=== PATIENT | male | born 1955 ===

== ENCOUNTER 2024-07-14 12:58 | Emergency (ER) | payer MEDICARE ==
[2024-07-14] MEDS ORDERED: Sodium Chloride 0.9% 10 ML Syringe FLUSH PRN (13:04)
[2024-07-14] MEDS: Albuterol/Ipratropium 3.0-0.5 MG/3 ML Neb Soln NEB ONE (13:11)
[2024-07-14 13:16] LABS: BASE EXCESS ARTERIAL 3.4 mm/L; BICARBONATE,ARTERIAL 36.4 mmol/L (22.0-26.0); CARBOXYHEMOGLOBIN 1.1 % (0.0-1.6); METHEMOGLOBIN 1.1 %; O2 SATURATION ARTERIAL 86.4 % (95.0-98.0); OXYHEMOGLOBIN 84.5 %; PO2 ARTERIAL 69.4 mmHg (75.0-100.0); TOTAL HEMOGLOBIN 14.8 g/dL (13.5-18.0)
[2024-07-14] MEDS: Morphine 2 MG/ML SYRINGE IVPUSH ONE ×2 (13:16→15:40)
[2024-07-14] MEDS: methylPREDNISolone Sodium Succinate 125 MG/2 ML SDV IVPUSH ONE (13:17)
[2024-07-14 13:19] LABS: BASOPHILS ABSOLUTE AUTO 0.03 K/uL (0.00-0.10); BASOPHILS PERCENT AUTO 0.3 % (0.1-1.3); HEMATOCRIT 45.5 % (38.4-49.7); HEMOGLOBIN 14.4 g/dL (12.9-16.9); IMMATURE GRAN ABSOLUTE AUTO 0.04 K/uL (0.00-0.23); IMMATURE GRAN PERCENT AUTO 0.4 % (0.0-0.7); LYMPHOCYTES ABSOLUTE AUTO 0.42 K/uL (0.8-3.3); LYMPHOCYTES PERCENT AUTO 4.7 % (11.4-47.7); MEAN CORPUSCULAR HEMOGLOBIN 31.6 pg (31.6-35.5); MEAN CORPUSCULAR HGB CONC 31.6 g/dL (31.6-35.5); MONOCYTES ABSOLUTE AUTO 0.66 K/uL (0.20-0.90); MONOCYTES PERCENT AUTO 7.3 % (3.3-12.6); NEUTROPHILS ABSOLUTE AUTO 7.88 K/uL (1.0-7.6); NEUTROPHILS PERCENT AUTO 87.3 % (40.0-78.1); PLATELET COUNT,PLT 289 K/uL (130-375); RED BLOOD CELL COUNT 4.55 M/uL (4.14-5.76)
[2024-07-14] MEDS: Albuterol/Ipratropium 3.0-0.5 MG/3 ML Neb Soln ONE (13:34)
[2024-07-14] MEDS: Sodium Chloride 0.9% 500 ML IV ONE (13:35)
[2024-07-14] MEDS: methylPREDNISolone Sodium Succinate 125 MG/2 ML SDV ONE (13:35)
[2024-07-14] MEDS: cefTRIAXone 2 GM in Sodium Chloride 0.9% 100 ML IV SCH (13:36)
[2024-07-14 13:44] LABS: LACTIC ACID 2.2 mmol/L (0.4-2.0)
[2024-07-14 13:50] LABS: A/G RATIO 1.2 (1.2-2.2); ALANINE AMINOTRANSFERASE,ALT 33 U/L (12-78); ALBUMIN 4.5 g/dL (3.4-5.0); ALKALINE PHOSPHATASE 90 U/L (46-116); ASPARTATE AMNIOTRANSFERASE,AST 32 U/L (15-37); BILIRUBIN TOTAL 0.3 mg/dL (0.2-1.0); BLOOD UREA NITROGEN,BUN 12 mg/dL (7-18); CALCIUM 9.4 mg/dL (8.5-10.1); CARBON DIOXIDE,CO2 35 mmol/L (21-32); CHLORIDE,CL 97 mmol/L (100-108); CREATININE 0.8 mg/dL (0.8-1.3); ESTIMATED GFR 97 mL/min (>60); GLUCOSE RANDOM 161 mg/dL (74-106); POTASSIUM,K 4.4 mmol/L (3.6-5.2); PROTEIN TOTAL,TP 8.3 g/dL (6.4-8.2); SODIUM,NA 139 mmol/L (140-148)
[2024-07-14 13:53] LABS: ANION GAP 11.4 mmol/L (5.0-14.0)
[2024-07-14 13:54] LABS: TROPONIN I HIGH SENSITIVITY 386.2 pg/mL (<=60.3)
[2024-07-14 13:58] LABS: PRO B-TYPE NATRIUR PEPT,BNPPRO 592 pg/mL (5-125)
[2024-07-14 14:05] LABS: C-REACTIVE PROTEIN < 0.50 mg/dL (<0.50)
[2024-07-14 15:04] LABS: BASE EXCESS ARTERIAL 2.6 mm/L; BICARBONATE,ARTERIAL 32.8 mmol/L (22.0-26.0); CARBOXYHEMOGLOBIN 1.3 % (0.0-1.6); METHEMOGLOBIN 1.2 %; O2 SATURATION ARTERIAL 91.9 % (95.0-98.0); OXYHEMOGLOBIN 89.6 %; TOTAL HEMOGLOBIN 14.2 g/dL (13.5-18.0)
[2024-07-14 15:08] LABS: PCO2 ARTERIAL 81.8 mmHg (35.0-42.0)
[2024-07-14] MEDS ORDERED: Lidocaine 1% 20 ML MDV INJECT ONE (15:29)
[2024-07-14] MEDS: Morphine 2 MG/ML SYRINGE ONE (15:54)
[2024-07-14] MEDS: Lidocaine 1% 50 ML MDV INJECT ONE (16:22)
[2024-07-14 17:14] LABS: BASE EXCESS ARTERIAL 5.1 mm/L; BICARBONATE,ARTERIAL 33.9 mmol/L (22.0-26.0); CARBOXYHEMOGLOBIN 1.4 % (0.0-1.6); O2 SATURATION ARTERIAL 96.3 % (95.0-98.0); TOTAL HEMOGLOBIN 13.8 g/dL (13.5-18.0)
[2024-07-14 17:16] LABS: PCO2 ARTERIAL 72.7 mmHg (35.0-42.0)
== END 2024-07-14 19:07 ==
LOC: JP.ED 12:58
DX: J93.9 Pneumothorax, unspecified (principal); J44.1 Chronic obstructive pulmonary disease with (acute) exacerbation; Z87.891 Personal history of nicotine dependence
CPT/HCPCS: 32551; 36415; 36600; 71045; 80053; 82803; 83605; 83880; 84484; 85025; 86140; 87040; 94640; 96361; 96365; 96375; 96376; 99285; 99291; A9270; J0696; J2003; J2270; J2919; J7040; U0002